=== PATIENT | female | born 1965 | race Caucasian/White ===

== ENCOUNTER → 2018-01-29 | Outpatient (CLI) | payer OTHER | LOC: RAD 01:05 | DX: Z12.31 Encounter for screening mammogram for malignant neoplasm of breast (principal) ==

== ENCOUNTER → 2019-02-12 | Outpatient (CLI) | payer OTHER | LOC: RAD 07:54 | DX: Z12.31 Encounter for screening mammogram for malignant neoplasm of breast (principal) ==

== ENCOUNTER → 2020-03-03 | Outpatient (CLI) | payer OTHER | LOC: BC 07:52 | PROVIDERS: ATTEND Family Medicine | DX: Z12.31 Encounter for screening mammogram for malignant neoplasm of breast (principal) ==

== ENCOUNTER → 2020-03-10 | Outpatient (CLI) | payer OTHER | LOC: BC 12:40 | PROVIDERS: ATTEND Nurse Practitioner | DX: N63.10 Unspecified lump in the right breast, unspecified quadrant (principal); R92.8 Other abnormal and inconclusive findings on diagnostic imaging of breast ==

== ENCOUNTER → 2020-03-17 | Outpatient (CLI) | payer OTHER ==
[2020-03-17 09:55] LABS: ABSOLUTE NEUTROPHILS 3.7 thou/uL (1.4-8.2); BASOPHILS 0.5 % (0.0-2.0); EOSINOPHILS 3.2 % (0.0-3.0); HEMATOCRIT 43.8 % (37.0-47.0); HEMOGLOBIN 14.9 gm/dL (12.0-15.0); LYMPHOCYTES 35.9 % (24.0-44.0); MCH 31.9 pg (26.0-34.0); MCHC 34.1 g/dL (28.0-37.0); MCV 93.6 fL (80.0-100.0); MONOCYTES 10.4 % (1.0-8.0); PLATELET COUNT 282 thou/uL (150-400); RBC 4.68 mil/uL (4.20-5.00); RDW 13.3 % (10.5-14.5); WBC 7.4 thou/uL (4.0-11.0)
[2020-03-17 10:13] LABS: ALBUMIN 4.2 g/dL (3.4-5.0); ANION GAP 10 mmol/L (7-16); BUN 14 mg/dL (7-18); CALCIUM 9.3 mg/dL (8.5-10.1); CHLORIDE 106 mmol/L (98-107); CHOLESTEROL 169 mg/dL (<200); CO2 25 mmol/L (21-32); CREATININE 0.8 mg/dL (0.6-1.0); GLUCOSE 122 mg/dL (74-106); HDL CHOLESTEROL 60 mg/dL (>40); LDL CHOLESTEROL 83 mg/dL (<100); POTASSIUM 4.2 mmol/L (3.5-5.1); SGOT 21 U/L (15-37); SGPT 29 U/L (30-65); SODIUM 141 mmol/L (136-145); TC:HDL 2.8 Ratio (Not establshd); TOTAL BILIRUBIN 0.2 mg/dL (0.2-1.0); TOTAL PROTEIN 7.9 g/dL (6.4-8.2); TRIGLYCERIDE 130 mg/dL (<150); VLDL 26 mg/dL (<40)
== END ==
LOC: LAB 09:28
PROVIDERS: ATTEND Family Medicine
DX: E78.5 Hyperlipidemia, unspecified (principal)

== ENCOUNTER → 2020-03-17 | Outpatient (CLI) | payer OTHER ==
--- NOTE | 2020-03-23 17:06 | PATH ---
[facility] [address] [place] [address] PATHOLOGY RPT PROCEDURE Name: DIANEJUNIEKELSY FARIA Room #: REG Oleksandr Marques.#: [id number] Admission: 03/17/20 Date of : 67 Discharge: Report #: [id number] Path Case #: [id number] [facility] Accession Number: [id number] . 01 Material submitted: . breast - LEFT BREAST MASS, 2:00, 3CM. Modifiers: left, 2:00 . 01 Clinical history: . LEFT BREAST MASS . 02 Diagnosis: Breast, left breast at 2:00 3 cm from nipple, needle core biopsy: - INVASIVE MODERATELY DIFFERENTIATED DUCTAL ADENOCARCINOMA, EDGAR GRADE 2/3 MEASURING 1.3 CM IN GREATEST DIMENSION IN A SINGLE CORE IN CONTIGUOUS LENGTH. - DUCTAL CARCINOMA IN SITU, OF CRIBRIFORM TYPE AND INTERMEDIATE NUCLEAR GRADE. LBQ 03/18/2020 1441 Local . 02 Comment: Specimen type: Needle core biopsy Tumor site: Left breast at 2:00 3 cm from nipple Tumor quantitation: 1.3 cm Histologic type: Invasive ductal carcinoma and ductal carcinoma in situ Histologic grade: Norman grade 2/3 Tubules, nuclei and mitoses: 3, 3 and 1 respectively (less than 10 mitoses at 0.6 mm area in 10 HPF) LVSI: Not identified Microcalcifications: Identified in neoplastic and non-neoplastic breast tissue Markers: ER, OR, HER-2/radha Block: A1 Co-Review: Dr. Deya Edwards . Findings of this case are telephoned to Ms. Kirti Bee in our [facility] at 11:15 a.m. on 03/18/2020. (IUV/db; 03/18/2020) . 02 Addendum: . Special studies report received from [facility], [address] [place] [address], [address], [place], [address], on case [id number], labeled with their number [id number], dated 03/23/2020. . Breast/Prognostic Marker Analysis . Specimen Site: Lt Breast,2:00, 3 cm FN, Breast Carcinoma (Biopsy) Specimen ID #: [id number] [place] [address] PATHOLOGY RPT PROCEDURE Name: JUNIE KIMBALLN [facility] [id number] Admission: 03/17/20 Date of : 67 Discharge: Report #: [id number] Path Case #: [id number] . ER (Estrogen Receptor) Present/Positive Percent: 95.00% Analysis: Manual Comments: Staining intensity: Moderate to strong . OR (Progesterone Receptor) Present/Positive Percent: 90.00% Analysis: Manual Comments: Staining intensity: Moderate to strong . HER2 Not Over-Expressed Score: 1+ Analysis: Manual . Ki-67 Low Proliferation Percent: 10.00% Analysis: Manual . Time to Fixation (Cold Ischemic Time): Immediate Duration of Fixation: 14 Hours 10 Minutes Type of Fixative: 10% Neutral Buffered Formalin . Comments: ER/PgR testing at [facility]. is performed in compliance with the ASCO/CAP Clinical Practice Guidelines. If the result for ER is less than 1% it is reported as Negative; if the ER result is 1-10% it is reported as Low Positive; if the ER result is greater than 10% it is reported as Positive. If the result for PgR is less than 1% it is reported as Negative; if the PgR result is equal to or greater than 1%, it is reported as Positive. . REFERENCE: Drea KH, Dann MENDEZ, Brooke M, et al. Estrogen and progesterone receptor testing in breast cancer. ASCO/CAP guideline update. Arch Pathol Lab Med. 2020; 144:545-563. . Whole slide image capture is performed using [employer] ([employer]ingo) platform. Image analysis, if ordered, is performed using [employer] software. . at [facility]. Aide Anguiano M.D. Pathologist [address] [address] PATHOLOGY RPT PROCEDURE Name: JUNIE KIMBALL Room #: REG SIDNEY Harris#: [id number] Admission: 03/17/20 Date of : 67 Discharge: Report #: [id number] Path Case #: [id number] . . Methodology The HER2 Receptor protein expression is analyzed using the [place] HER2 rabbit monoclonal antibody (clone 4B5). This assay is used for diagnostic determination of the HER2 protein over-expression in paraffin embedded, formalin fixed breast cancer tissue on the [employer]. The specimen is processed using a secondary antibody-HRP conjugate detection system. The membrane staining of the tumor is determined either by manual score or image analysis. This antibody is intended for in vitro diagnostic use. The score is reported as 0, 1+, 2+, or 3+. This test is used for clinical purposes. . A rabbit monoclonal antibody (clone SP1) that recognized the Estrogen Receptor is used to perform immunohistochemistry on routinely fixed (formalin) paraffin embedded tissue on the [employer]. The specimen is processed using a secondary antibody-HRP conjugate detection system. The percentage of stained tumor nuclei is determined either manually or by image analysis. This test is intended for in vitro diagnostic use. This test is used for clinical purposes. . A rabbit monoclonal antibody (clone 1E2) that recognized the Progesterone Receptor is used to perform immunohistochemistry on routinely fixed (formalin) paraffin embedded tissue on the [employer]. The specimen is processed using a secondary antibody-HRP conjugate detection system. The percentage of stained tumor nuclei is determined either manually or by image analysis. This test is intended for in vitro diagnostic use. This test is used for clinical purposes. . A rabbit monoclonal antibody (clone 30-9) that recognized Ki67 is used to perform immunohistochemistry on routinely fixed (formalin) paraffin embedded tissue on the [employer]. The specimen is processed using a secondary antibody-HRP conjugate detection system. The percentage of stained tumor nuclei is determined either manually or by image analysis. This test is intended for in vitro diagnostic use. This test is used for clinical purposes. . Intended Use: This antibody is intended for in vitro diagnostic (IVD) use. HER2 (4B5) is a rabbit monoclonal antibody intended for the semi-quantitative detection of HER2 antigen in sections of formalin-fixed, paraffin embedded normal and neoplastic tissue. . This antibody is intended for in vitro diagnostic (IVD) use. Estrogen Receptor (ER) (SP1) is a rabbit monoclonal antibody (IgG) that is intended for the qualitative detection of estrogen receptor (ER) antigen in sections of formalin-fixed, paraffin-embedded tissue. ER is a rabbit monoclonal antibody that recognizes human estrogen receptor alpha. [address] [address] PATHOLOGY RPT PROCEDURE Name: JUNIE KIMBALL Room #: REG Oleksandr Marques.#: [id number] Admission: 03/17/20 Date of : 67 Discharge: Report #: [id number] Path Case #: [id number] . This antibody is intended for in vitro diagnostic (IVD) use. Progesterone Receptor (OR) (1E2) is a rabbit monoclonal antibody (IgG) that is intended for the qualitative detection of progesterone receptor (OR) antigen in sections of formalin fixed, paraffin embedded tissue. OR is a rabbit monoclonal antibody that recognizes the A and B forms of the human progesterone receptor. . This antibody is intended for in vitro diagnostic (IVD) use. Ki-67 (30-9) is a rabbit monoclonal antibody (IgG) directed against C-terminal portion of Ki-67 antigen. Staining for Ki-67 can be used to aid in assessing the proliferative activity of normal and neoplastic tissue. Ki-67 is a nuclear protein expressed in proliferating cells. During the cell cycle, the Ki-67 antigen is present in the G1, S, G2 and M phase but is absent in the G0 (quiescent phase). . . Disclaimer: This Test was performed by [facility]. at [address], [address]. . [facility] is a business unit of [facility]. a wholly-owned subsidiary of [employer]. . This assay has not been validated on decalcified tissues. Results should be interpreted with caution if this specimen was decalcified given the likelihood of false negativity on decalcified specimens. . Any image(s) that accompany this report is/are a contact center representative image(s) only and should not be used to render a diagnosis. . This interpretation is contingent on the specimen and the clinical information received. . For any special tests/stains performed, known positive cells or tissues are tested with each marker and examined to ensure positivity. Positive and negative internal controls, if present, react appropriately. . This analysis is an adjunct to the evaluation of the referring physician and does not represent a final diagnosis. . The immunohistochemistry tests performed at [facility]. were validated on tissue fixed in 10% neutral buffered formalin. The performance characteristics of the tests performed on tissue processed in other fixatives is not known. . HER2 testing at [facility]., is performed in [address] [address] PATHOLOGY RPT PROCEDURE Name: JUNIE KIMBALL Room #: REG CLOleksandr Harris#: [id number] Admission: 03/17/20 Date of : 67 Discharge: Report #: [id number] Path Case #: [id number] compliance with the 2018 updated ASCO/CAP Clinical Practice Guideline Focused Update. If the result is EQUIVOCAL (2+), it must be confirmed by an alternative assay such as FISH or Dual STEFANI. REF: Yash URRUTIA, OBIE Quigley et al: Human Epidermal Growth Factor Receptor 2 Testing in Breast Cancer: ASCO/CAP Clinical Practice Guideline Focused Update. J Clin Oncol 36:0658-2689, 2018. . HER2 and ER/OR ASCO/CAP guidelines require fixation in neutral buffered formalin for a minimum of 6 and a maximum of 72 hours. Fixation times less than 6 hours may not adequately preserve cell proteins. Fixation times longer than 72 hours may cause excess cross-linking of proteins reducing the antigen available for staining. Either scenario can cause reduced staining; hence false negative results are possible and should be considered for these situations if the HER2 IHC score is less than 3+ or ER or OR is negative (no staining or <1% positive). It is recommended that specimens fixed longer than 72 hours with HER2 IHC scores less than 3+ be confirmed by HER2 FISH or Dual STEFANI. The time from biopsy/excision to fixation in formalin (cold ischemic time) must be less than 1 hour. Time to fixation (cold ischemic time) greater than 1 hour should be interpreted with caution. HER2 testing, mainly HER2 by FISH, is particularly vulnerable since excessive cold ischemic time results in preferential loss of HER2 probe signals that may lead to false negative results. . SCORE STAINING PATTERN IN TUMOR CELLS INTERPRETATION RESULTS 0 No staining observed or incomplete, faint membrane staining in less than or equal to 10% of tumor cells. Negative 1+ Incomplete, faint membrane staining in greater than 10% of tumor cells. Negative 2+ Weak to moderate complete membrane staining observed in greater than 10% of tumor cells. Equivocal* *Must be confirmed by alternative assay (IHC/FISH/Dual STEFANI) 3+ Intense, complete membrane staining in greater than 10% of tumor cells. Positive . A complete copy of the report is on file. . Professional and Technical services performed by [employer] [facility] at [address] [place] [facility] [place] [address]. . (IUV:amj 03/23/2020) . [facility] [address] [place] [address] PATHOLOGY RPT PROCEDURE Name: JUNIE KIMBALL Room #: REG [facility] M.R.#: [id number] Admission: 03/17/20 Date of : 67 Discharge: Report #: [id number] Path Case #: [id number] MBR/03/23/2020 Addendum Electronically Signed by Yael Kasper MD, Pathologist . 02 Electronically signed: . Yael Kasper MD, Pathologist NPI- [id number] . 01 Gross description: . The specimen is received in formalin, labeled "Junie Kimball, left breast 2:00 3 cm". Received are multiple needle cores of fibrofatty tissue measuring 3.8 x 3.0 x 0.5 cm in aggregate dimensions. The specimen is submitted entirely in cassettes A1 through A3. The cold ischemic time is less than 1 minute. The total formalin fixation time is 14 hours and 10 minutes. (CAA; 03/17/2020) QAC/QAC 03/17/2020 1735 Local . 02 Pathologist provided ICD-10: C50.912, D05.12 . 02 CPT . 742673 Specimen Comment: A courtesy copy of this report has been sent to [phone], [phone] Specimen Comment: [phone] Specimen Comment: Report sent to / DR HERNANDEZ Performed at: [address] [facility] [address], [place], [place] [id number] MD Enoch Christine MD Phone: [phone] Performed at: [address] [id number] MD Yael Kasper MD Phone: [phone]
== END | disposition home or self-care (01) ==
LOC: ULTRA 08:27
PROVIDERS: ATTEND Family Medicine
DX: C50.912 Malignant neoplasm of unspecified site of left female breast (principal); R92.1 Mammographic calcification found on diagnostic imaging of breast

== ENCOUNTER → 2020-04-23 | Outpatient (CLI) | payer OTHER ==
[2020-04-23 15:50] LABS: CREATININE 0.9 mg/dL (0.6-1.0)
[2020-04-23 20:06] LABS: CORTISOL RANDOM 10.5 ug/dL (()); LUTEINIZING HORMONE (LH) 33.6 mIU/mL (()); TESTOSTERONE* 29 ng/dL (3-41)
== END ==
LOC: LAB 08:23
PROVIDERS: ATTEND Family Medicine
DX: E55.9 Vitamin D deficiency, unspecified (principal); N95.9 Unspecified menopausal and perimenopausal disorder

== ENCOUNTER → 2020-04-27 | Outpatient (CLI) | payer OTHER | LOC: MRI 07:50 | DX: C50.412 Malignant neoplasm of upper-outer quadrant of left female breast (principal) ==

== ENCOUNTER → 2020-04-29 | Outpatient (CLI) | payer OTHER | LOC: LAB 14:37 | PROVIDERS: ATTEND Family Medicine | DX: J02.9 Acute pharyngitis, unspecified (principal); Z20.828 Contact with and (suspected) exposure to other viral communicable diseases ==

== ENCOUNTER → 2020-04-29 | Outpatient (CLI) | payer OTHER | LOC: NUC 08:25 | PROVIDERS: ATTEND Family Medicine | DX: N95.1 Menopausal and female climacteric states (principal); N95.9 Unspecified menopausal and perimenopausal disorder ==

== ENCOUNTER → 2020-06-24 | Outpatient (CLI) | payer OTHER | LOC: LAB 14:55 | PROVIDERS: ATTEND Internal Medicine | DX: Z00.00 Encounter for general adult medical examination without abnormal findings (principal) ==

== ENCOUNTER → 2021-02-12 | Outpatient (CLI) | payer OTHER | LOC: BC 10:59 | PROVIDERS: ATTEND Family Medicine | DX: Z12.31 Encounter for screening mammogram for malignant neoplasm of breast (principal) ==

== ENCOUNTER → 2021-04-22 | Outpatient (CLI) | payer OTHER | LOC: NUC 09:42 | PROVIDERS: ATTEND Physician Assistant | DX: C50.412 Malignant neoplasm of upper-outer quadrant of left female breast (principal); M85.88 Other specified disorders of bone density and structure, other site ==